=== PATIENT | male | born 1970 | race Caucasian/White ===

== ENCOUNTER 2018-06-23 19:37 | Emergency (ER) | payer OTHER, MEDICAID, SELFPAY ==
[2018-06-23 19:40] VITALS: BP 170/104; PULSE 102; RESP 20; TEMP 37.4; O2SAT 99; BMI 35.6
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
[2018-06-23 20:10] VITALS: BP 170/104; PULSE 102; RESP 20; TEMP 37.4; O2SAT 99; BMI 35.6
[2018-06-23 20:21] LABS: Urine Tetrahydrocannabinol Negative (Negative)
[2018-06-23 20:22] LABS: Urine Amphetamines Negative (Negative); Urine Barbiturates Negative (Negative); Urine Benzodiazepines Negative (Negative); Urine Cocaine Negative (Negative); Urine MDMA Negative (Negative); Urine Methadone Negative (Negative); Urine Methamphetamines Negative (Negative); Urine Morphine/Opi cutoff 2000 Negative (Negative); Urine Oxycodone Negative (Negative); Urine Phencyclidine Negative (Negative); Urine Tricyclic Antidepressant Negative (Negative)
[2018-06-23 20:24] LABS: Appearance Urine UA CLEAR; Bilirubin Urine UA NEGATIVE (NEGATIVE); Color Urine UA YELLOW; Glucose Urine UA NEGATIVE (Negative); Ketones Urine UA 1+ (NEGATIVE); Leukocyte Esterase Urine UA NEGATIVE (NEGATIVE); Nitrite Urine UA NEGATIVE (Negative); Occult Blood Urine UA NEGATIVE (Negative); Protein Urine UA TRACE (Negative); Specific Gravity Urine UA 1.025 (1.000-1.035); Urobilinogen Urine UA 0.2 E.U./dL (0.2)
[2018-06-23 20:35] VITALS: PULSE 92; RESP 20; O2SAT 98
[2018-06-23] MEDS: HYDROCODONE/ACET 5/325 PREPACK 1 BOTTLE MISC (20:40)
--- NOTE | 2018-06-23 20:47 | PC.NURSE ---
Teaching done concerning his b/p.He did not want it repeated,will follow up with his PCP.Teaching done concerning his broken rib and how to cough and deep breathe.
== END 2018-06-23 20:40 | disposition home or self-care (01) ==
PROVIDERS: Emergency Provider Internal Medicine
DX: S22.31XA Fracture of one rib, right side, initial encounter for closed fracture (principal); W10.8XXA Fall (on) (from) other stairs and steps, initial encounter
CPT/HCPCS: 71101; 80305; 81003; 99282; 99284

== ENCOUNTER → 2018-12-29 14:14 | Outpatient (CLI) | payer OTHER, MEDICAID, SELFPAY ==
--- NOTE | 2018-12-29 | DI.RAD.S_ITS ---
PROCEDURE: XR RIBS RT 2V INDICATIONS: R RIBS TECHNIQUE: 2 views of the right ribs were acquired. COMPARISON: [facility], CR, XR RIBS RT MIN 3V W CXR 1V, 06/23/2018, 19:52. FINDINGS: Surgical changes and devices: None. Bones and chest wall: There is mildly displaced right ninth rib fracture which was present on 06/23/2018. No suspicious bony lesions. Overlying soft tissues appear unremarkable. Lungs and pleura: The visualized lung appears clear. No pleural effusions or pneumothorax are visible. IMPRESSION: Mildly displaced right ninth rib fracture. Dictated by: Stefani Govea M.D. on 12/29/2018 at 16:37 Approved by: Stefani Govea M.D. on 12/29/2018 at 16:40
== END ==
PROVIDERS: Visit Provider Chiropractor
DX: S22.31XA Fracture of one rib, right side, initial encounter for closed fracture (principal)
CPT/HCPCS: 71100

== ENCOUNTER → 2020-07-20 15:03 | Outpatient (CLI) | payer OTHER, MEDICAID, SELFPAY ==
--- NOTE | 2020-07-20 15:04 | DI.ECHO.S_ITS ---
[facility] +---------+ [facility] +---------+ : : [address] [place] : : : : [id number] : : : : Phone: [phone] +---------+ Echocardiogram Report + + :Name: SUSI KULKARNI Study Date: 07/20/2020 Height: 73 in : :[facility] ReadingLocation: Weight: 290 lb : : Gender: Male BSA: 2.5 m2 : :: 1970 Age: 50 yrs BP: 159/98 mmHg: :Reason For Study: Hypertension : :Ordering Physician: KARI, : :ANIVAL Performed By: Brennon Donaldson : :Referring: RED PIERCE D : + + Interpretation Summary 1) Normal left ventricular thickness, size, wall motion, and systolic function (EF 55-60%). 2) Mildly enlarged right ventricle with normal sysotlic function. 3) No significant valvular abnormalities. 4) Hypertension present during the study (BP 159/98mmHg). 5) No prior Echo available for comparison. Procedure: A two-dimensional transthoracic echocardiogram with color flow and Doppler was performed. The study quality was technically adequate. There is no prior echocardiogram noted for this patient. The patient was in sinus rhythm with heart rates between 74-92 bpm during the exam. Left Ventricle: The left ventricle is normal in size and wall thickness. Left ventricular systolic function is normal. The ejection fraction is estimated to be 55-60%. There are no focal wall motion abnormalities. Diastolic parameters suggest probable normal left ventricular diastolic function and normal filling pressures. Right Ventricle: The right ventricle is mildly dilated. The right ventricular systolic function is normal. Atria: Both atria are normal in size. There is no Doppler evidence for an interatrial shunt. Mitral Valve: The mitral valve is normal in structure and function. There is no mitral regurgitation noted. Aortic Valve: The aortic valve is normal in structure and function. There is no aortic valve stenosis. No aortic regurgitation is present. Tricuspid Valve: The tricuspid valve is normal in structure and function. No tricuspid regurgitation. Pulmonary artery pressures cannot be estimated because of the lack of a measurable TR jet velocity but the IVC suggests a CVP of around 3 mmHg. Pulmonic Valve: The pulmonic valve is not well seen, but is grossly normal. There is no pulmonic valvular regurgitation. Great Vessels: The aortic root is normal size. The dimensions of the ascending aorta are normal. The IVC is of normal diameter and collapses greater than 50% with a sniff. This suggests a low right atrial pressure of 3 mm Hg. Pericardium/ Pleura There is no pericardial effusion. There is no pleural effusion. MMode/2D Measurements & Calculations LVIDd: 5.1 cm LVOT diam: 2.2 cm LVIDs: 2.7 cm Ao root diam: 3.5 cm FS: 46.8 % asc Aorta Diam: 3.1 cm IVSd: 1.0 cm LVPWd: 0.94 cm LV santos. diameter/BSA (cm/m^2): 2.0 LV sys. diameter/BSA (cm/m^2): 1.1 LA A2 area: 14.6 cm2 RA long axis: 3.7 cm LA A4 area: 15.8 cm2 RA area: 13.8 cm2 LA length (vol): 4.8 cm RA vol: 43.7 ml LA vol: 41.0 ml RA : 17.3 ml/m2 LA vol index: 16.3 ml/m2 RVD1 (basal): 3.7 cm TAPSE: 2.3 cm Doppler Measurements & Calculations Ao V2 max: 161.0 cm/sec LVOT Max Karan: 117.5 cm/sec Ao V2 mean: 112.3 cm/sec LV V1 max P.5 mmHg Ao max P.4 mmHg LV V1 VTI: 24.9 cm Ao mean P.7 mmHg ALEXANDRU(I,D): 3.4 cm2 Ao V2 VTI: 28.8 cm ALEXANDRU(V,D): 2.9 cm2 sev ratio: 0.87 ALEXANDRU indexed to BSA (cm^2/m^2): 1.3 MV E max karan: 88.3 cm/sec PA V2 max: 139.8 cm/sec MV A max karan: 89.9 cm/sec PA V2 mean: 95.9 cm/sec MV E/A: 0.98 PA mean P.2 mmHg Med Peak E' Karan: 8.9 cm/sec PA pr(Accel): 48.9 mmHg E/E' med: 9.9 Lat Peak E' Karan: 12.2 cm/sec E/E' lat: 7.2 E/e' average: 8.6 MV dec time: 0.24 sec SV(LVOT): 97.8 ml Reading Physician:04:13 PM
== END ==
PROVIDERS: PCP Family Medicine; Referring Provider Family Medicine; Visit Provider Family Medicine
DX: I10 Essential (primary) hypertension (principal)
CPT/HCPCS: 93306

== ENCOUNTER → 2021-04-10 08:17 | Outpatient (CLI) | payer OTHER, MEDICAID, SELFPAY ==
[2021-04-10 20:55] LABS: COVID19 - ORCAS (NP or Nasal) Negative (Negative)
== END ==
PROVIDERS: PCP Family Medicine; Visit Provider Physician Assistant
DX: U07.1 COVID-19 (principal)
CPT/HCPCS: U0003

== ENCOUNTER → 2023-03-26 15:22 | Outpatient (CLI) | payer OTHER, MEDICAID, SELFPAY ==
--- NOTE | 2023-03-26 15:24 | DI.NM.S_ITS ---
PROCEDURE: NM EXERCISE TREADMILL NON NUC COMPARISON: None. INDICATIONS: Other forms of dyspnea FINDINGS: Rest ECG sinus rhythm. Eleazar protocol 7:18, maximum heart rate 166 bpm (99% peak predicted), maximum blood pressure 192/104, 10.1 METS, ANAIS +25%. Exercise ECG sinus tachycardia no ST segment changes or arrhythmias. Patient did not complain of exercise-induced chest pain. IMPRESSION: Low risk study. No evidence of exercise-induced ischemia or arrhythmia. Hypertensive response to exercise. Reduced exercise capacity. Dictated by: Priya Tong D.O. on 03/26/2023 at 16:18 Approved by: Priya Tong D.O. on 03/26/2023 at 16:20
== END ==
PROVIDERS: PCP Student in an Organized Health Care Education/Training Program; Referring Provider Student in an Organized Health Care Education/Training Program; Visit Provider Student in an Organized Health Care Education/Training Program
DX: R06.09 Other forms of dyspnea (principal)
CPT/HCPCS: 93017

== ENCOUNTER → 2023-04-07 12:17 | Outpatient (CLI) | payer OTHER, MEDICAID, SELFPAY ==
--- NOTE | 2023-04-07 | DI.ECHO.S_ITS ---
[facility] +---------+ [facility] +---------+ : : [address] : : : : [id number] : : : : Phone: [phone] +---------+ Echocardiogram Report + + :Name: SUSI KULKARNI Study Date: 04/07/2023 Height: 73 in : :[facility] ReadingLocation: Weight: 293 lb : : Gender: Male BSA: 2.5 m2 : :: 1970 Age: 53 yrs BP: 140/80 mmHg: :Reason For Study: Dyspnea : : Performed By: Naida Ellis : :Referring: BENTON LU : + + Interpretation Summary The patient was in sinus tachycardia with heart rates between 99-113 bpm during the exam. The left ventricle is normal in size and wall thickness. The left ventricle is hyperdynamic. The ejection fraction is estimated to be 70-75%. In some of the apical views, RV appears to be mild to moderately dilated especially in the mid segments. Overall RV function is preserved. All the valves were not well-visualized however no significant abnormalities seen. The IVC is of normal diameter and collapses greater than 50% with a sniff. This suggests a low right atrial pressure of 3 mm Hg. In comparison to previous study, sinus rate has increased. LV function more hyperdynamic. Correlate clinically, consider CT angio chest to make sure there is no pulmonary hypertension/PE. Procedure: A two-dimensional transthoracic echocardiogram with color flow and Doppler was performed. The study quality was technically difficult. There is no prior echocardiogram noted for this patient. A contrast injection of Definity was performed to improve assessment of LV function. The injection was performed through an intravenous line in the right arm. The patient was in sinus tachycardia with heart rates between 99-113 bpm during the exam. Left Ventricle: The left ventricle is normal in size and wall thickness. There is no echo evidence for significant left ventricular outflow tract obstruction. The ejection fraction is estimated to be 70-75%. The left ventricle is hyperdynamic. There are no focal wall motion abnormalities. Diastolic function could not be accurately assessed due to tachycardia. Right Ventricle: In some of the apical views, RV appears to be mild to moderately dilated especially in the mid segments. Overall RV function is preserved. Atria: The left atrial size is normal. There has been no significant change since the previous study. Right atrial size is normal. The interatrial septum grossly appears intact with no obvious evidence for an atrial septal defect. Mitral Valve: The mitral valve is normal in structure and function. There is no mitral regurgitation noted. Aortic Valve: The aortic valve opens well. The aortic valve is grossly normal. There is no aortic valve stenosis. No aortic regurgitation is present. Tricuspid Valve: The tricuspid valve is not well visualized, but is grossly normal. Fatty tricuspid annulus. There is trace tricuspid regurgitation. Pulmonary artery pressures cannot be estimated because of the lack of a measurable TR jet velocity. Pulmonic Valve: The pulmonic valve is not well visualized. There is no pulmonic valvular regurgitation. Great Vessels: The aortic root is normal size. The ascending aorta could not be visualized. The aortic arch is normal in size. The IVC is of normal diameter and collapses greater than 50% with a sniff. This suggests a low right atrial pressure of 3 mm Hg. Pericardium/ Pleura There is no pericardial effusion. There is no pleural effusion. MMode/2D Measurements & Calculations LVIDd: 5.2 cm Ao root diam: 3.4 cm LVIDs: 2.3 cm asc Aorta Diam: 3.3 cm FS: 55.2 % Ao Arch Diam (Prox Trans): 2.8 cm EPSS: 0.27 cm IVSd: 0.88 cm LVPWd: 0.82 cm LV santos. diameter/BSA (cm/m^2): 2.1 LV sys. diameter/BSA (cm/m^2): 0.92 LA A2 area: 19.6 cm2 RA long axis: 5.0 cm LA A4 area: 21.1 cm2 RA area: 17.8 cm2 LA length (vol): 5.7 cm RA vol: 54.4 ml LA vol: 61.7 ml RA : 21.5 ml/m2 LA vol index: 24.4 ml/m2 IVC diam: 1.7 cm RVD1 (basal): 2.9 cm Doppler Measurements & Calculations Ao V2 max: 138.0 cm/sec LVOT Max Karan: 98.5 cm/sec Ao V2 mean: 105.9 cm/sec LV V1 max P.9 mmHg Ao max P.6 mmHg LV V1 VTI: 20.8 cm Ao mean P.8 mmHg sev ratio: 0.75 Ao V2 VTI: 27.8 cm MV E max karan: 84.5 cm/sec PA V2 max: 77.0 cm/sec MV A max karan: 109.7 cm/sec PA V2 mean: 56.5 cm/sec MV E/A: 0.77 PA mean P.4 mmHg MV dec time: 0.23 sec PA pr(Accel): 34.5 mmHg Reading Physician:05:25 PM
== END ==
PROVIDERS: PCP Student in an Organized Health Care Education/Training Program; Referring Provider Student in an Organized Health Care Education/Training Program; Visit Provider Student in an Organized Health Care Education/Training Program
DX: R06.09 Other forms of dyspnea (principal)
CPT/HCPCS: 93306; Q9957

== ENCOUNTER → 2024-08-22 10:04 | Outpatient (CLI) | payer OTHER, MEDICAID, SELFPAY ==
[2024-08-22 19:33] LABS: Add Manual Diff / Slide Review NO; Basophils Absolute Auto 0 /uL (0-100); Basophils Percent Auto 0.5 % (0-2); Eosinophils Absolute Auto 300 /uL (0-450); Eosinophils Percent Auto 5.8 % (2-4); HEMOLYSIS < 15 (0-50); Hematocrit 45.2 % (41-53); Hemoglobin 15.3 g/dL (13.5-17.5); Lymphocytes Absolute Auto 2000 /uL (1100-4500); Lymphocytes Percent Auto 42.4 % (25-40); Mean Corpuscular HGB Conc 33.8 % (30-36); Mean Corpuscular Volume 94.6 fL (80-100); Monocytes Absolute Auto 600 /uL (0-900); Monocytes Percent Auto 13.2 % (3-14); Neutrophils Absolute Auto 1800 /uL (1500-7000); Neutrophils Percent Auto 38.1 % (50-75); Platelet Count 158 X10^3/uL (150-400); Red Blood Cell Count 4.77 X10^6/uL (4.5-5.9); Red Cell Distribution Width 12.9 % (11.6-14.8); White Blood Cell Count 4.7 X10^3/uL (4.5-11.0)
[2024-08-22 19:39] LABS: Alanine Aminotransferase 23 IU/L (<50); Albumin 4.4 g/dL (3.5-5.0); Albumin Globulin Ratio 2.1 (1.0-2.8); Alkaline Phosphatase 43 U/L (38-126); Aspartate Aminotransferase 35 IU/L (17-59); BUN Creatinine Ratio 12.9 (6-22); Bilirubin Total 0.3 mg/dL (0.2-1.3); Blood Urea Nitrogen 12 mg/dL (9-20); Calcium 9.6 mg/dL (8.4-10.2); Carbon Dioxide 28 mmol/L (22-32); Chloride 103 mmol/L (98-107); Cholesterol 253 mg/dL (140-199); Estimated Glomerular Filt Rate > 60 mL/min (>60); Globulin 2.1 g/dL (1.7-4.1); Glucose 93 mg/dL (70-99); HDL Cholesterol 63 mg/dL (40-60); LDL Cholesterol Calculated 118 mg/dL (<100); Potassium 4.3 mmol/L (3.4-5.1); Sodium 139 mmol/L (137-145); Total Protein 6.5 g/dL (6.3-8.2); Triglycerides 359 mg/dL (35-150)
[2024-08-22 19:48] LABS: Hemoglobin A1C% w Est Avg Glu 5.4 % (4.0-6.0)
[2024-08-22 20:12] LABS: TSH w/ Reflex to FT4 4.96 uIU/mL (0.47-4.68)
[2024-08-22 20:37] LABS: Free T4, Direct Thyroxine 0.83 ng/dL (0.78-2.19)
[2024-08-22 21:12] LABS: Prostate Specific Antigen Scrn 0.503 ng/mL (0.1-4.0)
[2024-08-27 16:08] LABS: Almond IgE <0.10 kU/L (Class 0); Cashew Nut IgE <0.10 kU/L (Class 0); Codfish Allergy IgE < 0.10 kU/L (Class 0); Egg White IgE <0.10 kU/L (Class 0); Hazelnut IgE <0.10 kU/L (Class 0); Milk IgE <0.10 kU/L (Class 0); Salmon Allergy IgE < 0.10 kU/L (Class 0); Scallop Allergy IgE < 0.10 kU/L (Class 0); Sesame seed Allergy IgE 0.12 kU/L (Class 0/I); Shrimp IgE <0.10 kU/L (Class 0); Soybean IgE <0.10 kU/L (Class 0); Tuna Allergy IgE < 0.10 kU/L (Class 0); Walnut IgE <0.10 kU/L (Class 0); Wheat Allergy IgE 0.11 kU/L (Class 0/I)
[2024-09-02 12:37] LABS: Percent Free Testosterone 2.78 % (1.50-4.20); Testosterone Free 9.35 ng/dL (5.00-21.00); Testosterone Total 336.5 ng/dL (264.0-916.0)
== END ==
PROVIDERS: PCP Physician Assistant Medical; Visit Provider Physician Assistant Medical
DX: Z12.5 Encounter for screening for malignant neoplasm of prostate (principal); F41.9 Anxiety disorder, unspecified; E66.9 Obesity, unspecified; R53.83 Other fatigue
CPT/HCPCS: 80053; 80061; 83036; 84402; 84403; 84439; 84443; 85025; 86003; G0103

== ENCOUNTER → 2024-10-04 10:01 | Outpatient (CLI) | payer OTHER, MEDICAID, SELFPAY ==
[2024-10-04 20:02] LABS: Cholesterol 233 mg/dL (140-199); HDL Cholesterol 79 mg/dL (40-60); LDL Cholesterol Calculated 107 mg/dL (<100); Triglycerides 236 mg/dL (35-150)
[2024-10-04 20:20] LABS: Free T3, Triiodothyronine Free 4.77 pg/mL (2.77-5.27)
[2024-10-04 20:34] LABS: TSH w/ Reflex to FT4 3.92 uIU/mL (0.47-4.68)
== END ==
PROVIDERS: PCP Physician Assistant Medical; Visit Provider Physician Assistant Medical
DX: E03.9 Hypothyroidism, unspecified (principal); E78.1 Pure hyperglyceridemia; E78.00 Pure hypercholesterolemia, unspecified
CPT/HCPCS: 80061; 84443; 84481

== ENCOUNTER → 2024-11-30 09:33 | Outpatient (CLI) | payer OTHER, MEDICAID, SELFPAY ==
[2024-11-30 19:48] LABS: Add Manual Diff / Slide Review NO; Hematocrit 43.8 % (41-53); Hemoglobin 14.9 g/dL (13.5-17.5); Lymphocytes Absolute Auto 2400 /uL (1100-4500); Mean Corpuscular HGB Conc 34.1 % (30-36); Mean Corpuscular Hemoglobin 31.8 PG (26-34); Mean Corpuscular Volume 93.3 fL (80-100); Platelet Count 155 X10^3/uL (150-400)
[2024-11-30 20:11] LABS: Alanine Aminotransferase 18 IU/L (<50); Albumin 4.3 g/dL (3.5-5.0); Albumin Globulin Ratio 1.9 (1.0-2.8); Alkaline Phosphatase 38 U/L (38-126); Blood Urea Nitrogen 18 mg/dL (9-20); Calcium 9.2 mg/dL (8.4-10.2); Carbon Dioxide 23 mmol/L (22-32); Chloride 104 mmol/L (98-107); Cholesterol 192 mg/dL (140-199); Estimated Glomerular Filt Rate > 60 mL/min (>60); Globulin 2.3 g/dL (1.7-4.1); Glucose 94 mg/dL (70-99); HDL Cholesterol 75 mg/dL (40-60); HEMOLYSIS 17 (0-50); Potassium 3.6 mmol/L (3.4-5.1); Sodium 136 mmol/L (137-145); Total Protein 6.6 g/dL (6.3-8.2); Triglycerides 282 mg/dL (35-150)
[2024-11-30 20:40] LABS: TSH w/ Reflex to FT4 4.49 uIU/mL (0.47-4.68)
== END ==
PROVIDERS: PCP Physician Assistant Medical; Visit Provider Physician Assistant Medical
DX: E78.00 Pure hypercholesterolemia, unspecified (principal); E78.1 Pure hyperglyceridemia; E03.9 Hypothyroidism, unspecified; R53.82 Chronic fatigue, unspecified; Z12.11 Encounter for screening for malignant neoplasm of colon
CPT/HCPCS: 80053; 80061; 84443; 85025